=== PATIENT | female | born 1985 | race Two or more races ===

== ENCOUNTER 2021-01-13 12:23 | Emergency (ER) | payer MEDICAID ==
[~2021-01-13] VITALS: Ht 165.1 cm; Wt 87.1 kg
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
--- NOTE | 2021-01-13 13:27 | NUR ---
ALVARO DANIELS AT PT'S BEDSIDE
[2021-01-13] MEDS ORDERED: ACETAMINOPHEN ES 500 MG TABLET ONE (14:52)
--- NOTE | 2021-01-13 14:56 | NUR ---
NO S/SX OF ALLERGIC REACTIONS: NO N/V/D, RASHES, OR SOB. TOLERATING R/A WELL AT 100%
[2021-01-13] MEDS: ACETAMINOPHEN ES 500 MG TABLET PO ONE (14:58)
--- NOTE | 2021-01-13 14:58 | NUR ---
Patient discharged to home in stable condition. Written and verbal after care instructions given. Patient verbalizes understanding of instruction. PT ambulatory with a steady gait.
[2021-01-13 15:02] VITALS: BP 98/54
== END 2021-01-13 14:58 | disposition home or self-care (01) ==
LOC: ER 12:48
DX: R53.1 Weakness (principal); R42 Dizziness and giddiness; R20.0 Anesthesia of skin; T50.Z95A Adverse effect of other vaccines and biological substances, initial encounter; Y92.89 Other specified places as the place of occurrence of the external cause